=== PATIENT | female | born 1950 | race Caucasian/White ===

== ENCOUNTER 2022-03-16 21:26 | Emergency (ER) | payer OTHER, SELFPAY ==
--- NOTE | ~2022-03-16 | XR_ITS ---
EXAMINATION: XR CHEST CLINICAL INFORMATION: Weakness. Fall. COMPARISON: None TECHNIQUE: 2 views of the chest were obtained. FINDINGS: Lungs are clear. No pulmonary vascular congestion. There is no pleural effusion. The heart size is normal. The cardiac and mediastinal contours are normal. There are calcifications of the thoracic aorta. There are multilevel degenerative changes of dorsal spine. Multiple healed bilateral rib fractures. No acute osseous abnormality. XR/XR chest 2V IMPRESSION: No acute abnormality of the chest.
--- NOTE | ~2022-03-16 | CT_ITS ---
EXAMINATION: NONCONTRAST HEAD CT NONCONTRAST CERVICAL SPINE CT INDICATION INFORMATION: Fall hitting head COMPARISON: None TECHNIQUE: Separate noncontrast CT examinations of the head and cervical spine were performed. Coronal and sagittal images were created for each examination at the technologist workstation. This CT examination was performed using dose optimization techniques as appropriate, variously including the following: *Automated exposure control *Adjustment of mA and/or kV according to patient size (this includes techniques or standardized protocols for targeted exams where dose is matched to indication/reason for exam; i.e. extremities or head) *Use of iterative reconstruction technique DLP: 925 mGy-cm FINDINGS: Head: There is no evidence of acute intracranial hemorrhage or territorial infarction. No abnormal mass effect or midline shift is seen. Cullen to white matter differentiation is well preserved. No extra-axial fluid collections are identified. No hydrocephalus. Proportional prominence of the ventricles and sulcal spaces is consistent with mild volume loss. Patchy periventricular and deep white matter hypoattenuation is consistent with mild small vessel ischemic changes. Chronic left basal ganglia lacunar infarct in the caudate head. Prominent subgaleal hematoma over the left parietal region. No calvarial fracture. The mastoid air cells and visualized portions of the paranasal sinuses are well aerated. Cervical spine: There is anatomic alignment of the vertebral bodies and posterior elements. The atlantoaxial and atlantooccipital articulations are intact. Vertebral body heights and intervertebral disc spaces are maintained. Multilevel small endplate osteophytes. Vacuum disc phenomenon at C5-C6. Mild facet arthropathy throughout. No evidence of acute fracture. No prevertebral soft tissue swelling. Visualized portions of the lung apices are unremarkable. The thyroid gland is unremarkable. CT/CT cervical spine wo con IMPRESSION: 1. No acute intracranial finding. Prominent subgaleal hematoma over the left parietal region. 2. No fracture or malalignment of the cervical spine. Mild degenerative change.
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
--- NOTE | 2022-03-16 21:58 | ECG_ITS ---
Test Reason : FALL Blood Pressure : / mmHG Vent. Rate : 087 BPM Atrial Rate : 087 BPM P-R Int : 158 ms QRS Dur : 082 ms QT Int : 358 ms P-R-T Axes : 063 -14 046 degrees QTc Int : 430 ms Normal sinus rhythm Normal ECG No previous ECGs available Referred By: Kelly Duque Electronically Signed By:STEVEN VELEZ
[2022-03-16 22:21] VITALS: BP 136/116; PULSE 95; RESP 20; TEMP 37.1; O2SAT 97
[2022-03-16 23:32] VITALS: BP 136/89; PULSE 75; RESP 16; TEMP 37.1; O2SAT 95; BMI 36.8
[2022-03-16 23:33] LABS: Basophils Absolute Auto 0.1 X10*3/uL (0.0-0.2); Basophils Percent Auto 0.8 % (0-2); Hematocrit 35.4 % (37.0-47.0); Hemoglobin 11.5 g/dl (12.0-16.0); Imm Gran Abs Auto 0.04 X10*3/uL (0.00-0.03); Imm Gran Pct Auto 0.6 % (0.0-0.4); Lymphocytes Absolute Auto 0.7 X10*3/uL (1.2-4.9); Lymphocytes Percent Auto 9.5 % (20-40); MANUAL DIFF FLAG SCAN; Mean Corpuscular HGB Conc 32.5 g/dl (31.0-35.0); Mean Corpuscular Hemoglobin 32.4 pg (27.0-33.0); Mean Corpuscular Volume 99.7 fL (80.0-98.0); Mean Platelet Volume 8.9 fL (9.4-12.3); Monocytes Absolute Auto 0.6 X10*3/uL (0.1-1.2); Monocytes Percent Auto 7.7 % (2-11); Neutrophils Absolute Auto 3.9 x10*3/uL (2.0-8.3); Neutrophils Percent Auto 53.4 % (45-73); Platelet Count 109 X10*3/uL (160-400); Red Blood Count 3.55 X10*6/uL (4.20-5.50); SCAN SMEAR FLAG 1; White Blood Count 7.2 X10*3/uL (4.8-10.8)
[2022-03-16 23:50] LABS: SLIDE REVIEW VERIFIED
[2022-03-16 23:51] LABS: Alanine Aminotransferase 23 U/L (0-31); Albumin Level 4.2 g/dL (3.5-5.0); Alkaline Phosphatase 146 U/L (39-117); Anion Gap 17 (12-20); Aspartate Amino Transferase 34 U/L (5-31); Bilirubin Direct 0.3 mg/dL (0.0-0.5); Bilirubin Total 0.5 mg/dL (0.0-1.0); Blood Urea Nitrogen 12 mg/dL (9-16); Calcium 9.6 mg/dL (8.4-10.2); Carbon Dioxide 27 mmol/L (22-29); Chloride 103 mmol/L (96-108); Creatinine Clr Calc Pharmacy 54.1; Estimated Glomerular Filt Rate > 60; Glucose Random 120 mg/dL (60-115); Magnesium 1.7 mg/dL (1.6-2.6); Potassium 4.2 mmol/L (3.3-5.1); Sodium 143 mmol/L (135-145); Total Protein 7.5 g/dL (6.5-8.0)
[2022-03-16 23:53] LABS: Troponin-I High Sensitivity 4.4 ng/L (<3.5-17.0)
--- NOTE | 2022-03-17 01:09 | PC.NURSE ---
pt deemed stable for D.C by , pt angry with this RN and charge nurse that she does not qualify for an ambulance, MD aware, conveyor line battery charger at bedside to attempt to calm down pt with no success, pt refusing to sign d.c paperwork, pt refusing to get into wheelchair, security at bedside.
== END 2022-03-17 01:21 | disposition home or self-care (01) ==
PROVIDERS: Nurse Practitioner Family; Emergency Provider Emergency Medicine; PCP Internal Medicine
DX: S00.93XA Contusion of unspecified part of head, initial encounter (principal); W01.0XXA Fall on same level from slipping, tripping and stumbling without subsequent striking against object, initial encounter; Z91.81 History of falling; Y93.89 Activity, other specified; Y92.039 Unspecified place in apartment as the place of occurrence of the external cause; Y99.9 Unspecified external cause status
CPT/HCPCS: 36415; 70450; 71046; 72125; 80048; 80076; 83735; 84484; 85025; 93005; 99284; 99285

== ENCOUNTER 2022-03-17 05:41 | Emergency (ER) | payer OTHER, SELFPAY ==
[2022-03-17 06:01] VITALS: BP 149/70; PULSE 109; RESP 20; TEMP 36.6; O2SAT 96; BMI 32.4
--- NOTE | 2022-03-17 08:11 | ED.GENADULT ---
HPI - General Adult General Chief complaint: General Medical Stated complaint: rehab, general pain Time Seen by Provider: 03/17/22 07:55 Source: patient and old records reviewed Mode of arrival: ambulatory Limitations: no limitations History of Present Illness HPI narrative: 71 yo female with hx of asthma, COPD, HTN came for a fall last night - negative CT head/cspine. She still has neck pain but her main complaint is that she stayed in the waiting room all night after refusing STR placement and now notes she needs placement. EMS told ED that her living conditions were unkempt and poor. MD complaint: requesting rehab placement Onset (ago): day(s) (1) Location: head and neck Radiation: non-radiation Severity: mild Quality: aching and dull Pain Consistency: constant Relieving factors: none Exacerbating factors: movement Associated symptoms: denies other symptoms Treatments prior to arrival: other (just had workup in ED) Related Data Allergies Allergy/AdvReac Type Severity Reaction Status Date / Time Unable to Assess Allergy Verified 03/16/22 21:58 Review of Systems Review of Systems: Constitutional : No Fever, No Chills ENT/Mouth : No Ear Pain, No Hoarseness, No sore throat, pos neck pain Eyes: No Eye Pain, No Swelling, No Redness, No Foreign Body Cardiovascular : No Chest Pain, No SOB Respiratory : No Cough, No Dyspnea Gastrointestinal : No Nausea, No Vomiting, No Diarrhea, No abdominal Pain Genitourinary : No Dysuria, No Hematuria Musculoskeletal : no joint pain, No Myalgias, No Joint Swelling Skin : No Skin lacerations, No rash Neuro : No Weakness, No Numbness, No Loss of Consciousness, No Dizziness, No Headache Psych : No Anxiety/Panic, No Depression Heme/Lymph: no easy bruising, no Lymphadenopathy Endocrine : No Polyuria, No Polydipsia All other systems reviewed and are negative [facility] Past Medical History Medical History Asthma COPD (chronic obstructive pulmonary disease) HTN (hypertension) Social History Social History (Updated 03/17/22 @ 08:19 by Zara Davis DO) Patient Tobacco Use Status: Tobacco use Unknown Advance Directives: Yes Advance Directives Information Provided: No Advance Directives on File: No Physical Exam ED Vital Signs: Vital Signs - 24 hr 03/17/22 06:01 Temperature 97.8 F Pulse Rate 109 H Respiratory Rate 20 Blood Pressure 149/70 H Pulse Oximetry 96 Oxygen Delivery Method Room Air BMI result Body Mass Index 32.4 Appearance: Alert. Oriented X3. No acute distress. Eyes: Pupils equal, round and reactive to light. ENT: Pharynx normal. Contusion to left parietal scalp Neck: Normal inspection. Neck supple. CVS: Normal heart rate and rhythm. Pulses normal. Respiratory: No respiratory distress. Breath sounds normal. Abdomen: Soft and nontender. Skin: Skin warm and dry. Normal skin color. Normal skin turgor. Extremities: No lower extremity edema. Neuro: Oriented X 3. No motor deficit. No sensory deficit. Course Course Course Narrative: Patient placed in physician observation at 823am. The indication for observation is that the patient needs more time to for PT/CM to help with placement in STR. At this time the patient is well developed well nourished, lungs clear, CV RRR, abd nontender, neuro is intact. Medical Decision Making [facility] Narrative Medical decision making narrative: 71 yo female from home COPD, asthma, HTN, recent fall with negative CT head/cspine comes back from waiting room after refusing rehab now agrees she needs help and placement. Will obtain PT/CM consult Discharge Plan Discharge Clinical Impression: Contusion of head, Cervical strain Patient Disposition: Still a Patient
[2022-03-17] MEDS: Acetaminophen 325 MG TABLET 650 MG PO (08:47)
[2022-03-17 08:53] LABS: COVID-19 Test Negative (Negative)
--- NOTE | 2022-03-17 08:54 | PC.NURSE ---
PT WAS MEDICATED FOR GENERAL BODY PAIN. SHE HAS SEVERAL BRUISES OF VARYING STAGES OF HEALING. SHE IS ABLE TO TRANSFER TO THE WITH STAND BY ASSIST FOR TOILETING.
--- NOTE | 2022-03-17 09:19 | PHA.MEDREC ---
Pharmacy Consult ? Medication Reconciliation Pharmacy has completed the medication reconciliation. Patient was a poor historian of medications. Reports Flovent use, but claim history reports that the patient hasn't picked up a refill in a while.
[2022-03-17] MEDS: Cyclobenzaprine HCl 10 MG TABLET PO (10:34)
[2022-03-17] MEDS: Lidocaine 4 % Patch ADH..PATCH 1 PATCH TRANSDERMA (10:35)
--- NOTE | 2022-03-17 13:18 | MHC.CM.PN ---
Addendum entered by Jailyn Sandoval 03/17/22 14:09: [facility] HAS INDICATED [facility] WILL NOT BE OFFERING A STR BED REFERRAL EXPANDED TO [facility] [place] [facility] [place] FOR [facility]TENDED CARE Addendum entered by Jailyn Sandoval 03/17/22 13:34: [facility] RESPONDED AND ASKING FOR TIME TO CONFIRM THAT PT WILL BE ABLE TO RETURN HOME FOLLOWING STR AND THAT HER HOME WILL NOT BE CONDEMNED. CM WILL WAIT FOR THEM TO CONFIRM THIS AND PROVIDE ANSWER ON POTENTIAL BED OFFER Original Note: CM MET WITH PT TO DISCUSS STR PLACEMENT PT REPORTS SHE IS VACCINATED AGAINST COVID BUT DID NOT GET THE BOOSTERS, SHE SAYS SHE DOES NOT WANT THEM PT REPORTS SHE HAD A HCP BUT WOULD NEED TO UPDATE IT ANYWAY SHE SAYS SHE WOULD NAME HER SONS, TROY AND IBETH HER AGENTS SHE IS AWARE ONE WILL NEED TO BE COMPLETED FOR PLACEMENT PT REPORTS SHE WOULD LIKE TO GO TO [facility] SHE SAYS IF THEY DO NOT OFFER A BED SHE WOULD WANT TO HAVE THE REFERRAL SENT TO SNFS IN [place] [facility] [place] HCP COMPLETED REFERRAL SENT TO [facility]
[2022-03-17] MEDS: Ondansetron ODT 4 MG TAB.RAPDIS TRANSLINGU (14:31)
--- NOTE | 2022-03-17 14:51 | PC.NURSE ---
medicated for nausea. she was given po fluids and toast for lunch
[2022-03-17 14:54] VITALS: BP 167/77; PULSE 101; RESP 18; O2SAT 97
[2022-03-17] MEDS: oxyCODONE HCl Immed Release 5 MG TABLET PO ×2 (16:22→22:59)
[2022-03-17 17:15] VITALS: BP 162/65; PULSE 101; RESP 18; TEMP 37.3; O2SAT 99
--- NOTE | 2022-03-17 19:14 | PC.NURSE ---
PT UP TO BEDSIDE COMMODE WITH ASSIST, REPORTS SEVERSL EPISODES OF LOOSE STOOL. SHE ATE DINNER WITHOUT REPORTS OF NAUSEA
[2022-03-17 21:25] VITALS: BP 173/77; PULSE 99; RESP 18; TEMP 36.8; O2SAT 96
[2022-03-17] MEDS: Montelukast Sodium 10 MG TABLET PO (21:44)
[2022-03-17] MEDS: Melatonin 3 MG TABLET 6 MG PO (21:44)
--- NOTE | 2022-03-17 21:51 | PC.NURSE ---
Diprolene not in Pyxis, pharmacy notified.
[2022-03-17] MEDS: Betamethasone Dip Aug 0.05% Cr 15 GM TUBE 1 APPL TOPICAL (22:03)
[2022-03-17 22:58] VITALS: BP 168/77; PULSE 89; RESP 18; O2SAT 97
[2022-03-17 23:32] VITALS: BP 160/82; PULSE 97; O2SAT 96
[2022-03-18] VITALS (7 sets, daily range): BP systolic 138–160; BP diastolic 61–84; PULSE 79–98; RESP 16–19; TEMP 36.7–37.1; O2SAT 94–98
[2022-03-18] MEDS: amLODIPine Besylate 5 MG TABLET PO (09:25)
[2022-03-18] MEDS: Magnesium Oxide 400 MG TABLET PO (09:25)
[2022-03-18] MEDS: Multivitamin TABLET 1 TAB PO (09:25)
[2022-03-18] MEDS: Betamethasone Dip Aug 0.05% Cr 15 GM TUBE 1 APPL TOPICAL ×2 (09:26→20:43)
[2022-03-18] MEDS: oxyCODONE HCl Immed Release 5 MG TABLET PO ×2 (09:28→20:43)
--- NOTE | 2022-03-18 10:38 | PC.NURSE ---
Patients bed linen were changed, clean mayur, room cleaned.
--- NOTE | 2022-03-18 12:49 | MHC.CM.ED ---
No bed offers. ? if facilities concerned about condition of apartment and if pt can return to home. CM explained that patient is A&O x4 and has every intention of returning to her apartment after STR. Referrals re-sent for consideration. CM to follow for d/c needs.
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
[2022-03-18] MEDS: Montelukast Sodium 10 MG TABLET PO (20:43)
[2022-03-18] MEDS: Melatonin 3 MG TABLET 6 MG PO (20:43)
[2022-03-19 01:45] VITALS: BP 137/71; PULSE 93; RESP 18; O2SAT 97
[2022-03-19 04:20] VITALS: BP 137/62; PULSE 79; RESP 14; O2SAT 95
[2022-03-19] MEDS: Omeprazole 40 MG CAPSULE.DR PO (05:36)
[2022-03-19] MEDS: oxyCODONE HCl Immed Release 5 MG TABLET PO ×2 (05:36→23:12)
[2022-03-19] MEDS: Magnesium Oxide 400 MG TABLET PO (09:10)
[2022-03-19] MEDS: amLODIPine Besylate 5 MG TABLET PO (09:10)
[2022-03-19] MEDS: Betamethasone Dip Aug 0.05% Cr 15 GM TUBE 1 APPL TOPICAL (09:10)
[2022-03-19] MEDS: Multivitamin TABLET 1 TAB PO (09:11)
[2022-03-19 09:12] VITALS: BP 150/76; PULSE 105; O2SAT 96
--- NOTE | 2022-03-19 15:02 | MHC.CM.ED ---
Met with pt to review STR referral updates: [facility] unable to [facility] auth over a weekend and there is no good [facility] agreement with them for unauthorized placement. Pt would need to remain in ED boarding until Monday. Pt verbalized many of her displeasures with care in the ED - a one sided conversation which continued despite redirection by CM. She then began to discuss her own political beliefs. CM had to interrupt and again explained the STR process/[facility] auth to pt. At this time, pt states she will not wait any longer and would like transportation to home. She states she can only d/c via ambulance d/t her medical conditions. Pt would not give any additional information to this CM regarding her home safety, service needs or functional abilities as she felt I was not of a certain political affiliation. CM to make BLS referrals. D/C plans relayed to pt's RN and MD.
--- NOTE | 2022-03-19 20:43 | PC.NURSE ---
[facility] called this US with an update @1956 [facility] passed this transport to [facility] and will be here within the next two hours
--- NOTE | 2022-03-19 22:31 | PC.NURSE ---
[facility] called @2231 regarding update with [facility], [facility] unable to transport patient [facility] will continue search
[2022-03-20] MEDS: Montelukast Sodium 10 MG TABLET PO (01:24)
[2022-03-20] MEDS: Melatonin 3 MG TABLET 6 MG PO (01:24)
--- NOTE | 2022-03-20 04:32 | PC.NURSE ---
spoke to FANNY from [facility] @0042 for an update on transport [facility] is going to continue to pass transport to another ambulance company, if not passed [facility] will be here for 0800 for transport
[2022-03-20] MEDS: Omeprazole 40 MG CAPSULE.DR PO (06:25)
[2022-03-20] MEDS: oxyCODONE HCl Immed Release 5 MG TABLET PO (06:26)
== END 2022-03-20 10:15 | disposition other institution (70) ==
PROVIDERS: Emergency Provider Emergency Medicine; PCP Internal Medicine
DX: S00.93XA Contusion of unspecified part of head, initial encounter (principal); S16.1XXA Strain of muscle, fascia and tendon at neck level, initial encounter; X58.XXXA Exposure to other specified factors, initial encounter; I10 Essential (primary) hypertension; R00.0 Tachycardia, unspecified; Y93.9 Activity, unspecified; Y92.9 Unspecified place or not applicable; Y99.9 Unspecified external cause status; J45.909 Unspecified asthma, uncomplicated; R29.6 Repeated falls
CPT/HCPCS: 87635; 97162; 99284; 99285